=== PATIENT | female | born 1990 | race African-American/Black ===

== ENCOUNTER → 2019-06-22 | Outpatient (CLI) | payer SELFPAY | END | disposition home or self-care (01) | LOC: RAH 11:11 → EEVIPCON 11:11 | PROVIDERS: ATTEND Urology | DX: R05 Cough (principal); R06.02 Shortness of breath; R50.9 Fever, unspecified | CPT/HCPCS: 71046 ==

== ENCOUNTER → 2020-07-03 | Outpatient (CLI) | payer BC, SELFPAY | END | disposition home or self-care (01) | LOC: EDH 08:56 | PROVIDERS: ATTEND Internal Medicine | DX: Z20.822 Contact with and (suspected) exposure to COVID-19 (principal) | CPT/HCPCS: C9803; U0003 ==